=== PATIENT | male | born 1965 | race Caucasian/White ===

== ENCOUNTER → 2018-03-07 | Outpatient (CLI) | payer BC ==
[~2018-03-07] MED LIST: IOPAMIDOL (ISOVUE-300) 100 ML BTL ONE
== END ==
LOC: FIMAGING 16:04
PROVIDERS: ATTEND Internal Medicine
DX: R10.30 Lower abdominal pain, unspecified (principal); R10.2 Pelvic and perineal pain
CPT/HCPCS: Q9967

== ENCOUNTER 2019-02-22 18:37 | Emergency (ER) | payer BC | END 2019-02-22 20:07 | disposition home or self-care (01) ==